=== PATIENT | female | born 1995 | race Caucasian/White ===

== ENCOUNTER 2016-03-07 18:17 | Emergency (ER) | payer SELFPAY, OTHER ==
[2016-03-07] MEDS ORDERED: Ondansetron ODT 4 MG TAB ONE (18:53)
[2016-03-07] MEDS ORDERED: Ibuprofen 800 MG TAB ONE (18:53)
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
== END 2016-03-07 19:38 | disposition home or self-care (01) ==
LOC: MADERS 18:17
DX: G44.209 Tension-type headache, unspecified, not intractable (principal); F17.210 Nicotine dependence, cigarettes, uncomplicated; V49.9XXA Car occupant (driver) (passenger) injured in unspecified traffic accident, initial encounter
CPT/HCPCS: 99283; Q0162

== ENCOUNTER 2016-10-02 12:29 | Emergency (ER) | payer OTHER, SELFPAY ==
[~2016-10-02 12:29] MED LIST: Sodium Chloride 0.9% 1,000 ML BAG ONE
[2016-10-02 13:17] LABS: Clarity Cloudy (Clear); pH, Urine 8.5 (5.0-9.0)
[2016-10-02 13:18] LABS: Bacteria/HPF Rare-Few HPF (None Seen); Bilirubin Negative (Negative); Blood, Urine Moderate (Negative); Glucose, Urine (Dipstick) Negative (Negative); Leukocyte Negative (Negative); Nitrite Negative (Negative); Protein, Urine (Dipstick) Negative (Neg-Trace); Squamous Epithelial 0-3 HPF (0-3); Urobilinogen 0.2 mg/dL (0.2-1.0); WBC/HPF 0-3 HPF (0-3)
[2016-10-02 13:19] LABS: Pregnancy Test - Urine (BHCG) POSITIVE (Negative); Pregu Control Background? CLEAR/WHITE (CLR/WHITE); Pregu Control Bar Appear? YES (CONTROL BAR)
[2016-10-02 13:33] LABS: #Basophils 0.1 thou/uL (0.0-0.2); #Eosinphils 0.1 thou/uL (0.0-0.7); #Lymphocytes 1.6 thou/uL (1.20-3.40); #Monocytes 0.4 thou/uL (0.11-0.59); #Neutrophils 4.4 thou/uL (1.40-6.50); %Basophils 0.9 % (0.0-1.0); %Eosinophils 1.7 % (0.0-10.0); %Lymphocytes 23.6 % (21.0-51.0); %Monocytes 6.2 % (0.0-10.0); %Neutrophils 67.6 % (42.0-75.0); Hemoglobin 13.3 g/dL (12.0-16.0); Mean Corpuscular HGB CONC 32.7 g/dL (32.0-36.0); Mean Corpuscular Hemoglobin 31.6 pg (27.0-31.0); Mean Corpuscular Volume 96.6 fl (81.0-99.0); Mean Platelet Volume 6.9 fL (7.4-10.4); Platelet Count 242 thou/uL (130-400); RBC Distribution Width 12.2 % (11.5-14.5); Red Blood Cell (RBC) Count 4.21 mill/uL (4.20-5.40); White Blood Cell (WBC) Count 6.6 thou/uL (4.8-10.8)
[2016-10-02] MEDS ORDERED: Ketorolac Tromethamine 30 MG/ML VIAL ONE (13:33)
[2016-10-02] MEDS ORDERED: Ondansetron HCl/PF 4 MG/2 ML Vial ONE (13:33)
[2016-10-02 13:50] LABS: ALT (SGPT) 10 U/L (8-55); AST (SGOT) 21 U/L (5-34); Albumin 4.4 g/dL (3.5-5.0); Alkaline Phosphatase 50 U/L (40-150); Anion Gap 17 mmol/L (10-20); BUN (Urea Nitrogen) 8 mg/dL (7.0-18.7); Bilirubin, Total 0.6 mg/dL (0.2-1.2); CRP (Inflammatory) Less than 0.50 mg/dL (= or < 0.5); Calc. Creatinine Clearance 0 mL/min (70-130); Calcium 9.5 mg/dL (7.8-10.44); Carbon Dioxide 20 mmol/L (22-29); Chloride 102 mmol/L (98-107); Estimated GFR-MDRD Greater than 90; Globulin 3.3 g/dL (2.4-3.5); Glucose 87 mg/dL (70-105); Potassium 4.1 mmol/L (3.5-5.1); Protein, Total 7.7 g/dL (6.0-8.3); Sodium 135 mmol/L (136-145)
[2016-10-02 14:27] LABS: Crystals/HPF 3+ AMORPH PHOS HPF (Negative)
--- NOTE | 2016-10-02 15:49 | ULT ---
OBSTETRIC SONOGRAM 10/02/16 HISTORY: Early . Pelvic pain and bleeding. FINDINGS: Multiple transabdominal and transvaginal sonographic views of the pelvis show urinary bladder to hav e a normal appearance. The uterus has a heterogeneous echotexture. Gestational sac within the endome trial cavity is present. [place]-rump length correlates with 7 weeks, 3 days gestational age. No heart motion was detected. The uterus is retroverted. No free fluid is evident within the pelvis. Each ovary has a normal sonographic appearance with small follicles and demonstrates good color and spectral doppler flow. IMPRESSION: Absence of heart tones with the intrauterine pole. Small for dates gestational size. Fin dings are evidence of intrauterine demise. POS: [facility]
== END 2016-10-02 17:13 | disposition home or self-care (01) ==
LOC: MADERS 12:29
DX: O36.4XX0 Maternal care for intrauterine death, not applicable or unspecified (principal); O99.331 Smoking (tobacco) complicating pregnancy, first trimester; F17.210 Nicotine dependence, cigarettes, uncomplicated
CPT/HCPCS: 76815; 80053; 81001; 81025; 85025; 86140; 87086; 96361; 96374; J1885; J2405; J7050

== ENCOUNTER 2016-10-08 14:07 | Emergency (ER) | payer SELFPAY | END 2016-10-08 15:40 | disposition home or self-care (01) | LOC: MADERS 14:07 | DX: O03.9 Complete or unspecified spontaneous abortion without complication (principal); O99.330 Smoking (tobacco) complicating pregnancy, unspecified trimester; F17.210 Nicotine dependence, cigarettes, uncomplicated | CPT/HCPCS: 36415; 84702; 90384; 96372 ==

== ENCOUNTER 2016-10-18 22:31 | Emergency (ER) | payer SELFPAY ==
[2016-10-18] MEDS ORDERED: Ondansetron ODT 4 MG TAB ONE (22:44)
[2016-10-18 23:10] LABS: Pregnancy Test - Urine (BHCG) POSITIVE (Negative)
[2016-10-18 23:11] LABS: Bilirubin Small (Negative); Clarity Clear (Clear); Glucose, Urine (Dipstick) Negative (Negative); Icto Negative (Negative); Leukocyte Negative (Negative); Nitrite Negative (Negative); Pregu Control Background? CLEAR/WHITE (CLR/WHITE); Pregu Control Bar Appear? YES (CONTROL BAR); Protein, Urine (Dipstick) Trace mg/dL (Neg-Trace)
[2016-10-18] MEDS ORDERED: HYDROcodone/Acetaminophen 5/325 mg Tablet ONE (23:11)
[2016-10-18 23:12] LABS: Blood, Urine Negative (Negative)
== END 2016-10-18 23:32 | disposition home or self-care (01) ==
LOC: MADERS 22:31
DX: O03.9 Complete or unspecified spontaneous abortion without complication (principal); F17.210 Nicotine dependence, cigarettes, uncomplicated
CPT/HCPCS: 81003; 81025; 99284; Q0162

== ENCOUNTER 2017-01-31 15:57 | Emergency (ER) | payer SELFPAY ==
[2017-01-31 16:32] LABS: Pregnancy Test - Urine (BHCG) Negative (Negative); Pregu Control Background? CLEAR/WHITE (CLR/WHITE); Pregu Control Bar Appear? YES (CONTROL BAR); Specific Gravity 1.023 (1.002-1.036)
== END 2017-01-31 16:30 | disposition home or self-care (01) ==
LOC: MADERS 15:57
DX: J20.9 Acute bronchitis, unspecified (principal); F17.210 Nicotine dependence, cigarettes, uncomplicated
CPT/HCPCS: 81025; 99283

== ENCOUNTER 2017-07-22 16:25 | Emergency (ER) | payer SELFPAY ==
[2017-07-22] MEDS ORDERED: Acetaminophen 325 MG TAB ONE (17:24)
[2017-07-22] MEDS ORDERED: Acetaminophen 325 MG Suppository ONE (17:24)
--- NOTE | 2017-07-22 19:03 | RAD ---
LEFT SHOULDER RADIOGRAPHS THREE VIEWS: Date: 07-22-17 Provided Clinical History: Left shoulder pain. FINDINGS: There is no evidence for fracture or other acute osseous abnormality. If there is persistent clinical concern, conservative management and follow up imaging are advised. IMPRESSION: As above. POS: [facility]
--- NOTE | 2017-07-22 19:04 | RAD ---
LEFT CLAVICLE RADIOGRAPH TWO VIEWS: Date: 07-22-17 Provided Clinical History: Left shoulder pain status post injury. FINDINGS: There is subtle curvilinear radiolucency and minimal cortical off set at the caudal margin of the mid shaft of the left clavicle compatible with nondisplaced fracture. Coracoclavicular and acromioclavicu lar distances appear normal. Visualized left lung appears clear. IMPRESSION: Nondisplaced midshaft left clavicular fracture. POS: [facility]
== END 2017-07-22 17:45 | disposition home or self-care (01) ==
LOC: MADERS 16:25
DX: S42.025A Nondisplaced fracture of shaft of left clavicle, initial encounter for closed fracture (principal); F17.210 Nicotine dependence, cigarettes, uncomplicated; X50.1XXA Overexertion from prolonged static or awkward postures, initial encounter; Y93.72 Activity, wrestling

== ENCOUNTER 2017-11-19 21:26 | Emergency (ER) | payer MEDICAID, OTHER | END 2017-11-19 22:14 | disposition home or self-care (01) | LOC: MADERS 21:26 | DX: O36.8130 Decreased fetal movements, third trimester, not applicable or unspecified (principal); Z3A.39 39 weeks gestation of pregnancy | CPT/HCPCS: 99283 ==

== ENCOUNTER 2018-05-24 13:46 | Emergency (ER) | payer OTHER | END 2018-05-24 14:55 | disposition home or self-care (01) | LOC: MADERS 13:46 | DX: J02.9 Acute pharyngitis, unspecified (principal) | CPT/HCPCS: 87081; 87430; 99282 ==

== ENCOUNTER 2018-12-16 14:11 | Emergency (ER) | payer OTHER, SELFPAY | END 2018-12-16 14:45 | disposition home or self-care (01) | LOC: MADERS 14:11 | DX: S60.445A External constriction of left ring finger, initial encounter (principal); F17.210 Nicotine dependence, cigarettes, uncomplicated; W49.04XA Ring or other jewelry causing external constriction, initial encounter | CPT/HCPCS: 99282 ==

== ENCOUNTER 2019-04-14 18:24 | Emergency (ER) | payer SELFPAY | END 2019-04-14 19:27 | disposition home or self-care (01) | LOC: MADERS 18:24 | DX: J06.9 Acute upper respiratory infection, unspecified (principal); F17.210 Nicotine dependence, cigarettes, uncomplicated | CPT/HCPCS: 87804; 99283 ==

== ENCOUNTER 2020-03-21 12:20 | Emergency (ER) | payer SELFPAY | END 2020-03-21 12:51 | disposition home or self-care (01) | LOC: MADERS 12:20 | DX: J06.9 Acute upper respiratory infection, unspecified (principal); F17.210 Nicotine dependence, cigarettes, uncomplicated | CPT/HCPCS: 99282 ==

== ENCOUNTER 2020-06-19 05:55 | Emergency (ER) | payer SELFPAY ==
[2020-06-19] MEDS ORDERED: Tetracaine 0.5% PF 4 ML BOT ONE (06:15)
== END 2020-06-19 06:33 | disposition home or self-care (01) ==
LOC: MADERS 05:55
DX: H10.32 Unspecified acute conjunctivitis, left eye (principal); F17.210 Nicotine dependence, cigarettes, uncomplicated
CPT/HCPCS: 99283

== ENCOUNTER 2022-09-24 19:27 | Emergency (ER) | payer OTHER, SELFPAY ==
[2022-09-24 20:32] LABS: Bilirubin Negative (Negative); Blood, Urine Negative (Negative); Glucose, Urine (Dipstick) Negative (Negative); Ketone, Urine Negative (Negative); Leukocyte Small (Negative); Nitrite Negative (Negative); Protein, Urine (Dipstick) Trace mg/dL (Neg-Trace); Specific Gravity, Urine 1.025 (1.005-1.030); Urobilinogen 0.2 mg/dL (Less than 2)
[2022-09-24 20:34] LABS: Pregnancy Test - Urine (BHCG) Negative (Negative); Pregu Control Background? CLEAR/WHITE (CLR/WHITE); Pregu Control Bar Appear? YES (CONTROL BAR); Specific Gravity 1.025 (1.002-1.036)
[2022-09-24 20:35] LABS: Clarity Slightly Cloudy (Clear)
[2022-09-24 20:36] LABS: Bacteria/HPF 3+ HPF (None Seen); CAUTI Indications for Culture Dysuria,urgency,freq; RBC/HPF 0-3 HPF (0-3); Urine Culture Reflex Yes Yes
[2022-09-24] MEDS ORDERED: Lidocaine 1% PF 5 ML VIAL ONE (21:02)
[2022-09-24] MEDS ORDERED: cefTRIAXone (ROCEPHIN) 1 GM VIAL ONE (21:02)
== END 2022-09-24 21:38 ==
LOC: MADERS 19:27 → EEVIPCON 19:27 → MADERS 21:38
DX: N39.0 Urinary tract infection, site not specified (principal); F17.210 Nicotine dependence, cigarettes, uncomplicated
CPT/HCPCS: 36415; 81001; 81025; 87086; 96372; 99284; J0696